=== PATIENT | male | born 1990 | race Caucasian/White ===

== ENCOUNTER 2022-01-19 09:25 | Emergency (ER) | payer OTHER, BC, SELFPAY ==
[2022-01-19 09:40] VITALS: BP 148/90; PULSE 85; RESP 18; TEMP 36.6; O2SAT 98; BMI 43.3
--- NOTE | 2022-01-19 10:07 | ED_ITS ---
HPI - Wound/Laceration General Time Seen by Provider: 09:40 Date Seen: 01/19/22 Chief Complaint: Laceration/Wound Stated Complaint: Sliced left pointer finger Time Seen by Provider: 01/19/22 09:36 Source: patient Mode of arrival: ambulatory Limitations: no limitations History of Present Illness HPI narrative: Tim is a very pleasant 31-year-old male with unknown last tetanus who comes to the emergency room from his work for evaluation regarding a left finger injury. 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 He notes that the knife slipped as he was cutting an un right of a cot 0 and he sustained a laceration to his left 2nd or index finger. He is still able to bend and straighten his finger. He complains of some numbness in the mid aspect of his finger. He is otherwise healthy he states. Location: other ( Left index or 2nd finger) Place: work Patient tetanus UTD: Yes ( confirmed as 2016) Context: accidental Associated symptoms: loss of feeling/numbness ( patient has distal sensation from the D IP to the tip of his finger lateral surface. He has decreased sensation in the middle phalanx distal to the wound.) Treatments prior to arrival: bandage Related Data Home Medications Medication Instructions Recorded Confirmed fluoxetine 20 mg capsule 30 mg PO DAILY 01/19/22 01/19/22 Allergies Allergy/AdvReac Type Severity Reaction Status Date / Time cephalexin Allergy Intermediate Hives Verified 01/19/22 10:10 penicillin G Allergy Intermediate Hives Verified 01/19/22 09:56 Review of Systems Neuro: Reports: other ( Numbness distal to the wound) PFSH PFSH Social History Smoking Status: Unknown if ever smoked Do you use any of these nicotine containing products: None Second hand tobacco smoke exposure: No How often do you have a drink containing alcohol: never AUDIT-C Alcohol total score: 0 Non-prescribed substance use: denies use Exam Const: Vital Signs, click to edit/add: Vital Signs - 24 hr 01/19/22 09:40 Temperature 97.8 F Pulse Rate [Right Pulse Oximeter] 85 Respiratory Rate 18 Blood Pressure [Ri ght Upper Arm] 148/90 H Pulse Oximetry 98 Documenting provider has reviewed patient's vital signs: yes Common normals: no apparent distress General appearance: cooperative and comfortable Extremity: Left upper extremity: hand and digits (Second finger left hand at the PIP) Other: Patient is noted to have a 1.3 cm laceration perpendicular to the long axis of the finger lateral surface at the PIP. Compromising dermis and epidermis. Underlying structures not visualized. Wound is hemostatic at this time. Neuro: Sensory exam: extremities (Second finger left hand.) Skin: Narrative: 1.3 cm laceration at the PIP joint lateral surface. Compromises dermis and epidermis. Patient has full flexion extension against resistance. Patient has altered sensation immediately distal to the wound to the D IP. Distal to the D IP full sensation intact. Capillary refill brisk. Course Course Hospital Course: Gently me unwrap patient's wound. It is hemostatic at this time. I do clean the area. 1% lidocaine is then instilled in the wound with good anesthesia. Nursing staff is irrigating room at this time. Plan on sutures. I do not think that Dermabond is appropriate in this situation in this high flex area. Vital Signs Vital signs: Initial Vital Signs Temperature 97.8 F 01/19/22 09:40 Temperature Source Temporal Artery Scan 01/19/22 09:40 Pulse Rate 85 01/19/22 09:40 Respiratory Rate 18 01/19/22 09:40 Blood Pressure 148/90 H 01/19/22 09:40 Blood Pressure Mean 109 01/19/22 09:40 Blood Pressure Position Sitting 01/19/22 09:40 Pulse Oximetry 98 01/19/22 09:40 Oxygen Delivery Method 01/19/22 09:40 Vital Signs Temperature 97.8 F 01/19/22 09:40 Pulse Rate 85 01/19/22 09:40 Respiratory Rate 18 01/19/22 09:40 Blood Pressure 148/90 H 01/19/22 09:40 Pulse Oximetry 98 01/19/22 09:40 Temperature 97.8 F 01/19/22 09:40 Pulse Rate 85 01/19/22 09:40 Respiratory Rate 18 01/19/22 09:40 Blood Pressure 148/90 H 01/19/22 09:40 Pulse Oximetry 98 01/19/22 09:40 MDM - Wound/Laceration MDM Narrative Medical decision making narrative: Patient has linear clean laceration with no foreign bodies. Concern regarding compromise lateral digital nerve with decreased sensation distal to laceration and up to DI P joint on lateral surface. Differential Diagnosis Differential diagnosis: Likely laceration Medical Records Attestation: I reviewed the patient's medical records. Discharge Plan Discharge Clinical Impression: Laceration Patient Disposition: Home, Self-Care Condition: Improved Additional Instructions: Keep clean and dry for 24 hours. There after you may wash your hands but avoid soaking her finger such as doing dishes or going swimming. Sutures will be removed in 9-10 days. Recommend follow-up with a hand surgeon for evaluation of loss of sensation. Seek medical attention for signs and symptoms of infection which we have discussed today. [facility] phone number: Follow up appointment made with the hand specialist on 01/25/22 with an 8:45am arrival time. Please bring your insurance information, photo ID and wear a mask. The address is: [address] [place] [address], [id number] Activity Detail: Suggest use of covering over finger while at work. Tylenol or ibuprofen as needed for pain. Limit movement of finger. States Prescriptions: No Action fluoxetine 20 mg capsule 30 mg PO DAILY 0RF Follow Up/Referrals: Ranjith Engel MD [Primary Care Provider] - Stand Alone Forms: [facility] Info Instructions Procedures Laceration Laceration 1: Pre procedure diagnosis: Finger laceration Post procedure diagnosis: Finger laceration repair Name of person performing procedure: Yani Chiu Site: hand Side (If applicable): left Size (cm): 1.3 Description: linear Depth: simple, single layer Local Anesthetic: lidocaine 1% Amount of anesthesia used (mL): 1 Pre-repair: wound explored and irrigated extensively Skin layer closed with: nylon Size (cm): 4-0 Number of sutures: 5 Technique: simple, interrupted Wound cleansing: sterile water Estimated blood loss (if any): less than 5mls Conclusion: patient tolerated procedure
--- NOTE | 2022-01-19 11:25 | ED.NURSE ---
Bacitracin and adhesive bandage applied, per MD request.
== END 2022-01-19 12:12 | disposition home or self-care (01) ==
PROVIDERS: Emergency Provider Family Medicine; PCP Family Medicine
DX: S61.211A Laceration without foreign body of left index finger without damage to nail, initial encounter (principal); W26.0XXA Contact with knife, initial encounter
CPT/HCPCS: 12001; 99282

== ENCOUNTER 2022-07-04 10:15 | Outpatient (RCR) | payer OTHER, SELFPAY | END 2023-02-09 23:59 | disposition home or self-care (01) | PROVIDERS: PCP Family Medicine; Visit Provider Orthopaedic Surgery Hand Surgery | DX: S69.90XD Unspecified injury of unspecified wrist, hand and finger(s), subsequent encounter (principal); Z51.89 Encounter for other specified aftercare | CPT/HCPCS: 97033; 97035; 97110; 97140; 97165; 97535; X5282 ==